=== PATIENT | female | born 1995 | race Caucasian/White ===

== ENCOUNTER → 2021-08-15 23:31 | Observation (INO) ==
[2021-08-15 23:34] LABS: Bacteria,Urine Few per hpf (None-Few); Bilirubin,Urine Negative (Negative); Blood,Urine Moderate (Negative); Clarity,Urine Turbid (Clear); Color,Urine Yellow (Yellow); Glucose,Urine (UA) Normal (Normal); Ketones,Urine Negative (Negative); Leukocyte Esterase,Urine Moderate (Negative); Mucus,Urine Few per lpf (None-Few); Nitrite,Urine Negative (Negative); Protein,Urine Trace mg/dL (Neg-Trace); Specific Gravity,Urine 1.023 (1.010-1.025); Squamous Epithelial Cell,Urine Moderate per hpf (None-Few)
[2021-08-16 00:23] LABS: Candida DNA Not Detected (Not Detect); Gardnerella DNA Not Detected (Not Detect); Trichomonas DNA Not Detected (Not Detect)
== END | disposition home or self-care (01) ==
LOC: 1NENULAB
PROVIDERS: ADMIT Registered Nurse; ATTEND Registered Nurse

== ENCOUNTER 2021-09-20 09:42 | Inpatient (IN) ==
[2021-09-20] MEDS ORDERED: CeFAZolin 2,000 MG/120 ML BAG IVPB ONE (12:07)
[2021-09-20] MEDS ORDERED: Naloxone 0.4 MG/ML INJ IVP PRN (12:07)
[2021-09-20] MEDS ORDERED: OXYTOCIN/RINGERS LACTATE 10 UNIT/166.6 ML BAG IVC ONE ×2 (12:07→19:41)
[2021-09-20] MEDS ORDERED: Metoclopramide 10 MG/2 ML VIAL IVP ONE (12:07)
[2021-09-20] MEDS ORDERED: Famotidine 20 MG/2 ML VIAL IVP ONE (12:07)
[2021-09-20] MEDS ORDERED: Ringers Solution, Lactated 1,000 ML IVC ONE (12:07)
[2021-09-20] MEDS ORDERED: Ringers Solution, Lactated 1,000 ML IVC SCH ×2 (12:15→19:41)
[2021-09-20] MEDS ORDERED: Oxytocin 30 UNIT/503 ML BAG IVC SCH (12:15)
[2021-09-20 12:33] LABS: Basophils % 0.3 %; Eosinophils % 0.3 %; Hematocrit 35.6 % (35.3-44.9); Hemoglobin 11.4 g/dL (11.5-15.4); Immature Granulocytes % 1.1 % (0-4); Lymphocytes # 1.7 K/mcL (0.6-4.6); Lymphocytes % 15.7 %; Mean Corpuscular Hemoglobin 27.5 pg (28.0-33.3); Mean Platelet Volume 11.5 fL (9.4-12.4); Monocytes # 0.7 K/mcL (0.0-1.3); Monocytes % 6.7 %; Neutrophils # 8.5 K/mcL (1.6-8.9); Platelet Count 262 K/mcL (140-400); Red Blood Count 4.14 M/mcL (3.82-4.97); Segmented Neutrophils % 75.9 %; White Blood Count 11.1 K/mcL (4.3-11.1)
[2021-09-20 12:59] LABS: Influenza A PCR Negative (Negative); Influenza B PCR Negative (Negative); Resp. Syncytial Virus PCR Negative (Negative); SARS-CoV-2 by PCR (In House) Negative (Negative)
[2021-09-20] MEDS ORDERED: *HR* HYDROmorphone PF 0.5 MG/0.5 ML SYRINGE IVP PRN (13:27)
[2021-09-20] MEDS ORDERED: Ondansetron 4 MG/2 ML VIAL IVP PRN ×2 (13:27→19:41)
[2021-09-20] MEDS ORDERED: *HR* Morphine Sulfate/PF 10 MG/10 ML AMPUL ONE (13:32)
[2021-09-20] MEDS ORDERED: Ondansetron 4 MG/2 ML VIAL ONE (13:32)
[2021-09-20] MEDS ORDERED: Ketorolac 30 MG/ML VIAL ONE (13:32)
[2021-09-20] MEDS ORDERED: EPHEDrine 50 MG/ML VIAL ONE (13:32)
[2021-09-20] MEDS ORDERED: *HR* FentaNYL (PF) 100 MCG/2 ML VIAL ONE (13:32)
[2021-09-20 14:44] LABS: Amphetamine Screen,Urine Negative ng/mL (Cutoff=1000); Barbiturate Screen,Urine Negative ng/mL (Cutoff=200); Benzodiazepines Screen,Urine Negative ng/mL (Cutoff=200); Cannabinoid Screen,Urine Negative ng/mL (Cutoff = 50); Cocaine Screen,Urine Negative ng/mL (Cutoff= 300); Opiate Screen,Urine Negative ng/mL (Cutoff=300); Phencyclidine Screen,Urine Negative ng/mL (Cutoff=25)
[2021-09-20] MEDS ORDERED: Ringers Solution, Lactated 1,000 ML ONE (16:12)
[2021-09-20] MEDS ORDERED: Rho Immune Globulin 1,500 UNIT SYRINGE IM ONE (19:41)
[2021-09-20] MEDS ORDERED: Metoclopramide 10 MG/2 ML VIAL IVP PRN (19:41)
[2021-09-20] MEDS ORDERED: Simethicone 80 MG TAB.CHEW PO PRN (19:41)
[2021-09-20] MEDS: Acetaminophen 325 MG TABLET PO SCH (20:14)
[2021-09-20] MEDS: Ibuprofen 600 MG TABLET PO SCH (20:15)
[2021-09-20 22:31] VITALS: O2SAT 98
[2021-09-21] MEDS: Ibuprofen 600 MG TABLET PO SCH ×4 (04:32→23:40)
[2021-09-21] MEDS: Acetaminophen 325 MG TABLET PO SCH ×4 (04:33→23:40)
[2021-09-21 05:17] LABS: Basophils % 0.2 %; Eosinophils % 0.2 %; Hematocrit 30.3 % (35.3-44.9); Hemoglobin 9.9 g/dL (11.5-15.4); Immature Granulocytes % 1.2 % (0-4); Lymphocytes # 1.7 K/mcL (0.6-4.6); Lymphocytes % 13.4 %; Mean Corpuscular HGB Conc 32.7 g/dL (31.6-35.5); Mean Corpuscular Hemoglobin 27.8 pg (28.0-33.3); Mean Corpuscular Volume 85.1 fL (83.0-100.0); Mean Platelet Volume 11.2 fL (9.4-12.4); Monocytes % 7.4 %; Platelet Count 207 K/mcL (140-400); Red Blood Count 3.56 M/mcL (3.82-4.97); Segmented Neutrophils % 77.6 %; White Blood Count 12.9 K/mcL (4.3-11.1)
[2021-09-21] MEDS: Prenatal Vit/FA 1 EACH TABLET PO SCH (08:43)
[2021-09-21] MEDS: *HR* OxyCODONE Immed Rel 5 MG TABLET PO PRN ×2 (08:43→15:22)
[2021-09-21] MEDS ORDERED: IRON PO SCH (09:00)
[2021-09-21] MEDS ORDERED: [UNRECOGNIZED DRUG - OTHER] PO SCH (09:00)
[2021-09-21] MEDS ORDERED: DHA PO SCH (09:00)
[2021-09-22] MEDS: Ibuprofen 600 MG TABLET PO SCH ×2 (05:50→11:59)
[2021-09-22] MEDS: Acetaminophen 325 MG TABLET PO SCH ×2 (05:50→11:58)
[2021-09-22 07:43] VITALS: BP 117/77; PULSE 86; TEMP 98.1
[2021-09-22] MEDS: Prenatal Vit/FA 1 EACH TABLET PO SCH (09:01)
== END 2021-09-22 15:39 | disposition home or self-care (01) | DRG 787 ==
LOC: 1NENULAB 09:42 → 1NENUOBS 19:40
PROVIDERS: ADMIT Student in an Organized Health Care Education/Training Program; ATTEND Student in an Organized Health Care Education/Training Program